=== PATIENT | male | born 1960 | race Caucasian/White ===

== ENCOUNTER 2024-01-05 15:19 | Outpatient (CLI) | payer OTHER | END 2024-01-05 23:59 | disposition EMS.NT | LOC: EMS 15:19 | DX: M25.511 Pain in right shoulder (principal); V29.408A Other motorcycle driver injured in collision with unspecified motor vehicles in traffic accident, initial encounter; Y92.413 State road as the place of occurrence of the external cause ==

== ENCOUNTER 2024-01-05 17:06 | Emergency (ER) | payer OTHER ==
[2024-01-05 17:31] VITALS: BP 140/84; O2SAT 99
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
== END 2024-01-05 18:55 | disposition home or self-care (01) ==
LOC: ED 17:06
DX: S46.911A Strain of unspecified muscle, fascia and tendon at shoulder and upper arm level, right arm, initial encounter (principal); V23.49XA Other motorcycle driver injured in collision with car, pick-up truck or van in traffic accident, initial encounter; Y92.410 Unspecified street and highway as the place of occurrence of the external cause; E78.00 Pure hypercholesterolemia, unspecified
CPT/HCPCS: 99283; 99284